=== PATIENT | female | born 1995 | race Caucasian/White ===

== ENCOUNTER 2020-10-05 06:30 | Day surgery (SDC) | payer OTHER ==
[~2020-10-05] VITALS: Ht 157.5 cm; Wt 56.7 kg
[~2020-10-05 06:30] MED LIST: ADDERALL 30 MG30 MG PO; MARIJUANA; XANAX1 MG PO
[2020-10-05 07:07] LABS: HEMATOCRIT 38.6 % (36.0-48.0); MCHC 33.7 g/dL (31.0-37.0); MCV 94.9 fL (80.0-100.0); MEAN PLATELET VOLUME 8.6 fL (7.4-10.4); RBC 4.07 10x6/uL (4.00-5.40); RDW 14.2 % (11.5-14.5); WBC 7.5 10x3/uL (4.8-10.8)
[2020-10-05 07:17] LABS: HCG SERUM NEGATIVE (NEGATIVE)
[2020-10-05 08:00] VITALS: BP 115/65; Ht 157.5 cm; Wt 56.7 kg
--- NOTE | 2020-10-05 10:52 | NUR ---
OPA IN AIRWAY ON ADMIT
--- NOTE | 2020-10-05 10:53 | NUR ---
SCOPE PATCH BEHIND LT EAR ON ADMIT
--- NOTE | 2020-10-05 10:57 | NUR ---
200CC OF CLEAR YELLOW URINE IN BAG ON ADMIT
--- NOTE | 2020-10-05 11:27 | NUR ---
1105 [place] PAD PROVIDED, DISPOSABLE UNDERWEAR PROVIDED, TIME FRAME FOR DISCHARGE GIVEN.
--- NOTE | 2020-10-05 12:00 | NUR ---
1120 JEAN D/C'D AT DR. GM AND PTS REQUEST, WITHOUT INCIDENT. PT AMBULATED TO BR WITHOUT DIFFICULTY
--- NOTE | 2020-10-05 12:06 | NUR ---
1150 PT STATES HER PAIN LEVEL IS A 9 OUT OF [address] MG GAVE PAIN MEDICINE ORDER TO Lissa VALENCIA RN. PT ASKING FOR PAIN MEDICATION AT PRESENT.
--- NOTE | 2020-10-05 16:01 | NUR ---
1420 PT STATES HER PAIN LEVEL IS A 0 OUT OF 10 AFTER RECEIVING PERCOCET EARLIER. IV DC'D. CATHETER TIP INTACT. NO BLEEDING AT SITE/COBAN DRESSING APPLIED. 1430 DISCHARGE INSTRUCTIONS REVIEWED WITH PT AND SHE VOICES UNDERSTANDING OF THESE INSTRUCTIONS.
== END 2020-10-05 14:36 | disposition home or self-care (01) ==
LOC: D.OPS 06:30
PROVIDERS: Anesthesiology; ATTEND Obstetrics & Gynecology Maternal & Fetal Medicine
DX: R10.2 Pelvic and perineal pain (principal); N92.0 Excessive and frequent menstruation with regular cycle; N94.6 Dysmenorrhea, unspecified